=== PATIENT | male | born 1985 | race Asian ===

== ENCOUNTER 2022-11-18 07:38 | Emergency (ER) | payer BC ==
[~2022-11-18] VITALS: Ht 170.2 cm; Wt 73.0 kg
[2022-11-18 07:43] VITALS: TEMP 97.9; O2SAT 99
[2022-11-18] MEDS ORDERED: METH-653 MT (08:14)
[2022-11-18 08:15] VITALS: BP 166/82; PULSE 90; RESP 17
[2022-11-18] MEDS ORDERED: METHOCARBAMOL 500MG TABLET PO ONE (08:15)
[2022-11-18] MEDS ORDERED: KETOROLAC 60MG/2ML VIAL IM ONE (08:15)
== END 2022-11-18 09:13 | disposition home or self-care (01) ==
LOC: ER 07:38
DX: M25.512 Pain in left shoulder (principal)
CPT/HCPCS: 96372; 99283; J1885; Z7610